=== PATIENT | female | born 1980 | race Caucasian/White ===

== ENCOUNTER → 2016-11-11 | Outpatient (CLI) | payer BC ==
--- NOTE | 2016-11-12 09:02 | KCIC ---
PROCEDURE MR of the left wrist HISTORY Scapholunate dissociation. Posterior mid carpal pain for 2 weeks. Pain with twisting. TECHNIQUE Standard noncontrast images are obtained. COMPARISON None FINDINGS There is an ulna negative variance. Triangular fibrocartilage demonstrates some compensatory thickening. There is heterogeneous signal of the central disc and radial attachment but no through and through tear. The extensor carpi ulnaris tendon demonstrates mild tendinosis, and is subluxed medially, medial to the ulnar styloid. The other extensor compartments are intact. Flexor tendons intact. Median nerve unremarkable. The scapholunate ligament demonstrates some heterogeneous signal at the membranous component but no through and through tear however. No evidence of anterior or posterior band disruption. No significant joint effusion. There is a small multilobulated cyst or ganglion identified along the medial surface wrist, superficial to the triangular fibrocartilage. No evidence of acute fracture. No aggressive bone destruction. No significant joint effusion. IMPRESSION 1. 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 2. Degeneration or partial tearing of the triangular fibrocartilage. 3. 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 Electronically signed by: Jimmy Curry MD (Nov 12, 2016 09:01:01)
== END | disposition home or self-care (01) ==
LOC: KCIC MRI 17:22
PROVIDERS: ATTEND Nurse Practitioner Gerontology
DX: S63.512A Sprain of carpal joint of left wrist, initial encounter (principal)
CPT/HCPCS: 73221